=== PATIENT | male | born 1970 | race African-American/Black ===

== ENCOUNTER 2024-02-01 17:11 | Emergency (ER) | payer OTHER ==
[~2024-02-01] VITALS: Ht 170.2 cm; Wt 88.0 kg
[2024-02-01] MEDS ORDERED: 0.9% SODIUM CHLORIDE 10 ML SYRINGE IVP PRN (17:45)
[2024-02-01] MEDS: SODIUM CHLORIDE 0.9% 2,650 ML IV ONE (17:47)
[2024-02-01] MEDS: ACETAMINOPHEN 1000 MG/ISO-OSM 100 ML IV ONE (17:47)
[2024-02-01 17:53] LABS: HEMATOCRIT 46.1 % (41-53); HEMOGLOBIN 14.8 g/dL (13.5-17.5); MEAN CORPUSCULAR HEMOGLOBIN 25.9 pg (26.0-34.0); MEAN CORPUSCULAR HGB CONC 32.1 G/dL (31.0-37.0); MEAN CORPUSCULAR VOLUME 81 fL (80-100); PLATELET COUNT (AUTO) 249 K/uL (150-450); RED BLOOD CELL COUNT(AUTO) 5.72 MIL/uL (4.50-5.90); RED CELL DISTRIBUTION WIDTH 16.4 % (11.5-14.5); WHITE BLOOD COUNT (AUTO) 24.6 K/uL (4.5-11.0)
[2024-02-01 18:08] LABS: INR 1.1 (0.9-1.1)
[2024-02-01 18:09] LABS: BAND NEUTROPHILS % (MANUAL) 8 % (0-5); LYMPHOCYTES % (MANUAL) 11 % (22-44); MONOCYTES % (MANUAL) 8 % (2-9); SEGMENTED NEUTROPHILS % 73 % (40-70); TOTAL CELLS COUNTED 100
[2024-02-01 18:10] LABS: RBC MORPHOLOGY COMMENT NORMAL RBC MORPH; WBC MORPHOLOGY TOXIC VACUOLATION
[2024-02-01 18:15] LABS: B-TYPE NATRIURETIC PEPTIDE 15 pg/mL (0-100)
[2024-02-01] MEDS: AMPICILLIN SODIUM/SULBACTAM NA 3 GM in SODIUM CHLORIDE 0.9% 100 ML IV ONE (18:20)
[2024-02-01 18:34] LABS: CALCIUM, TOTAL 8.9 mg/dL (8.8-10.5); CREATININE 1.47 mg/dL (0.60-1.30); POTASSIUM 3.5 mmol/L (3.5-5.1)
[2024-02-01] MEDS ORDERED: SODIUM CHLORIDE 0.9% 100 ML ONE (18:40)
[2024-02-01] MEDS ORDERED: IOHEXOL 350 MG/ML 100 ML VIAL ONE (18:40)
[2024-02-01] MEDS: MORPHINE SULFATE 4 MG/ML SYRINGE IVP ONE (19:43)
[2024-02-01] MEDS: DEXAMETHASONE SOD PHOS 4 MG/ML 5 ML VIAL IVP ONE (20:24)
[2024-02-01] MEDS: KETOROLAC TROMETHAMINE 30 MG/ML VIAL IVP ONE (20:24)
[2024-02-01 20:36] VITALS: TEMP 98.7
[2024-02-01 21:31] LABS: APPEARANCE,URINE CLEAR (CLEAR); BILIRUBIN,URINE NEGATIVE (NEGATIVE); COLOR,URINE LIGHT YELLOW (YELLOW); GLUCOSE, URINE (UA) NEGATIVE (NEGATIVE); LEUKOCYTE ESTERASE ,URINE NEGATIVE (NEGATIVE); NITRATE,URINE NEGATIVE (NEGATIVE); OCCULT BLOOD,URINE MODERATE (NEGATIVE); PROTEIN,URINE TRACE mg/dL (NEGATIVE); UROBILINOGEN,URINE <=1.0 mg/dL (<=1.0)
[2024-02-01 21:36] LABS: BACTERIA,URINE Rare /HPF (None Seen); SQUAMOUS EPITHELIAL CELL,UR Rare /LPF (None Seen); WBC,URINE 0-2 /HPF (0-5)
[2024-02-01 22:42] VITALS: BP 124/67; PULSE 82; RESP 16
== END 2024-02-01 22:53 | disposition short-term general hospital (02) ==
LOC: EMS 17:11
DX: J03.90 Acute tonsillitis, unspecified (principal); K12.2 Cellulitis and abscess of mouth; R13.10 Dysphagia, unspecified; K02.9 Dental caries, unspecified
CPT/HCPCS: 99285; 96365; 70491; 96375; 71045; 80048; 81001; 83605; 83880; 85025; 85610; 87040; 36415; 93005; 96368; 84145; Q9967; J1100; J1885; J2270; J0295; J7050; J0131